=== PATIENT | male | born 1940 ===

== ENCOUNTER 2018-01-15 11:45 | Emergency (ER) | payer OTHER ==
[~2018-01-15] VITALS: Ht 162.6 cm; Wt 72.6 kg
[~2018-01-15 11:45] MED LIST: AMOX1TAB12 PO; ENALAPRIL MALE2.5 MG; ENALAPRIL MALEA10 MG PO; GLUCOTROL10 MG PO; METFORMIN HCL500 MG PO; PROVENTIL HFA6.7 GM IH; ZYNCOF 20-400120 ML PO
== END 2018-01-15 18:06 | disposition home or self-care (01) ==
LOC: ER 11:45
DX: E11.65 Type 2 diabetes mellitus with hyperglycemia (principal)